=== PATIENT | female | born 1985 | race Caucasian/White ===

== ENCOUNTER → 2021-01-29 09:24 | Outpatient (CLI) | payer OTHER, SELFPAY ==
[2021-01-29 20:13] LABS: SARS-CoV-2 RNA PCR Negative
== END ==
PROVIDERS: PCP Internal Medicine; Visit Provider Internal Medicine
DX: R68.89 Other general symptoms and signs (principal); Z20.822 Contact with and (suspected) exposure to COVID-19
CPT/HCPCS: C9803; U0003; U0005

== ENCOUNTER 2023-02-07 08:30 | Emergency (ER) | payer OTHER, SELFPAY ==
[2023-02-07 08:39] VITALS: BP 128/85; PULSE 82; RESP 16; TEMP 36.4; O2SAT 100
--- NOTE | 2023-02-07 08:42 | ED.FEMALEGU ---
HPI - Female Genitourinary General Chief complaint: Urogenital-Female Stated complaint: UTI SYMPTOMS Time Seen by Provider: 02/07/23 08:42 Source: patient Mode of arrival: ambulatory Limitations: no limitations History of Present Illness HPI Narrative: 37-year-old female presents with complaint of urinary frequency, urgency for the past 3-4 days. Reports starting yesterday she has had some lower abdominal cramping, mild burning with urination. Denies nausea vomiting diarrhea. No fever chills. Concerned she has a urinary tract infection. All systems reviewed and negative except as noted above. Related Data Allergies Allergy/AdvReac Type Severity Reaction Status Date / Time Sulfa (Sulfonamide Allergy Unknown Rash Verified 02/07/23 08:40 Antibiotics) Review of Systems Review of Systems: CONSTITUTIONAL: Denies fever, chills, or sweats. EYES: Denies visual changes, redness, or discharge. ENT: Denies rhinorrhea, congestion, sore throat, or otalgia. CARDIOVASCULAR: Denies chest pain, palpitations, or edema. RESPIRATORY: Denies cough or dyspnea. GASTROINTESTINAL: Denies abdominal pain, nausea, vomiting, or diarrhea. GENITOURINARY: Reports dysuria frequency, urgency. Denies hematuria. SKIN: Denies rash or itching. MUSCULOSKELETAL: Denies back pain, joint pain, or myalgia. NEUROLOGIC: Denies headache, numbness, or weakness. PSYCHIATRIC: Denies anxiety or depression. All other systems reviewed are negative, except as documented in HPI. [facility] Past Medical History Medical History (Updated 02/07/23 @ 09:30 by Quiana Fortune NP) Healthy adult History of in vitro fertilization Surgical History Surgical History No pertinent past surgical history Family History Family History Mother Family history of thyroid disease Hypertension Family history of gynecological problem Father Hypertension Grandparent Family history of cardiovascular disease Cerebrovascular accident Family history unknown Social History Social History (Updated 01/20/23 @ 13:00 by Nellie Hankins CMA) Smoking status: Never smoker Second hand tobacco smoke exposure: No Alcohol intake: current Lack of Transportation: No Lack of Food: Never True Current Housing: I Have Housing Concerned About Future Housing: No Difficulty Paying Gas/Electric Bills: No Difficulty Paying for Meds: No Currently Unemployed: No Difficulty w/ Childcare or Family Care: No Gender identity (if verbalized by the patient): Female Comments At time of signature, agree with nursing past medical, surgical, social and family history. There is no relevant family history pertinent to the presenting complaint. Exam Narrative: GENERAL: This is a well-nourished, well-developed patient, in no apparent distress. HEAD: normocephalic, atraumatic. EYES: PERRL. Sclera clear/white. Vision is grossly intact. EARS: External ears normal NOSE: External nose normal NECK: Neck supple, non-tender without lymphadenopathy, masses or thyromegaly. CARDIOVASCULAR: Regular rate and rhythm without murmurs, gallops, or rubs. RESPIRATORY: Clear to auscultation. Breath sounds equal bilaterally. No wheezes, rales, or rhonchi. SKIN: warm, Dry, intact with no suspicious lesions or rash, good texture and turgor. NEURO: awake, alert, and oriented to person, place and time. There were no obvious focal neurologic abnormalities. EXTREMITIES: No joint tenderness, effusion, or edema noted. Course Course Level of Care: Express Care Visit Vital Signs Vital signs: Vital Signs Temperature 36.4 C L 02/07/23 08:39 Pulse Rate 82 02/07/23 08:39 Respiratory Rate 16 02/07/23 08:39 Blood Pressure 128/85 02/07/23 08:39 Pulse Oximetry 100 02/07/23 08:39 Temperature 36.4 C L 02/07/23 08:39 Pulse Rate 82 02/07/23 08:39 Respiratory R
== END 2023-02-07 09:32 | disposition home or self-care (01) ==
PROVIDERS: Emergency Provider Nurse Practitioner Family; PCP Family Medicine
DX: N39.0 Urinary tract infection, site not specified (principal)
CPT/HCPCS: 81003; 81025; 87086; 99213; G0463